=== PATIENT | male | born 1995 | race Caucasian/White ===

== ENCOUNTER 2024-08-04 11:42 | Emergency (ER) | payer BC, SELFPAY ==
[2024-08-04 11:46] VITALS: BP 109/73; PULSE 78; TEMP 36.5; O2SAT 99; BMI 26.5
--- OUTSIDE RECORDS SUMMARY | 2024-08-04 11:54 | XMS_ITS | Clinical Summary ---
Author Organization [facility] Address [address] [place] [place] [address] Phone Care Team Providers Care Line Construction Supervisor Name Role Phone Daniel Thao MD Primary Care Provider + Social History Tobacco Use Types Packs/Day Years Used Date Smoking Tobacco: Never Assessed Sex and Gender Information Value Date Recorded Sex Assigned at Not on file Legal Sex Male 3:43 AM EST Gender Identity Not on file Sexual Orientation Not on file Plan of Treatment Not on file Care Teams Line Construction Supervisor Relationship Specialty Start Date End Date Daniel Thao MD [address] [place] [id number] PCP - General 02/19/18
--- NOTE | 2024-08-04 12:04 | ED.GENADUL1 ---
HPI HPI - General Adult General Chief complaint: Wound/Laceration Stated complaint: CUT THUMB WITH RAZOR Time Seen by Provider: 08/04/24 11:46 Source: patient Mode of arrival: walk-in History of Present Illness HPI narrative: 29-year-old male presents for laceration to his left thumb. It was sustained shortly before coming into the emergency department on a razor blade as he was cutting drywall. He is right-handed and no other injury was sustained. Last tetanus shot was about 5 years ago. Related Data Home Medications ?Medication ?Instructions ?Recorded ?Confirmed No Known Home Medications 08/04/24 08/04/24 Allergies Allergy/AdvReac Type Severity Reaction Status Date / Time No Known Drug Allergies Allergy Verified 08/04/24 11:46 Opioid HPI Opioid Management Most Recent Opioid Data: Last Pain Scale 3 Today, 11:54 Review of Systems ROS Narrative A ten point review of systems is negative except as noted above. PFSH PFSH Social History Little interest or pleasure in doing things: not at all Feeling down, depressed, or hopeless: not at all Exam Narrative Exam Narrative: Nurses note and vital signs reviewed and patient is not hypoxic. General: The patient appears well and in no apparent distress. Patient is resting comfortably on cart. Skin: Warm, dry, no pallor noted. There is no rash noted. Head: Normocephalic, atraumatic Eye: Normal conjunctiva, no drainage Ears, Nose, Mouth, and Throat: oral mucosa is moist. Nares patent. Cardiovascular: Regular Rate and Rhythm Respiratory: Patient is in no distress, no accessory muscle use Back: non-tender GI: Soft and nontender Musculoskeletal: The left hand is examined. There is a laceration at his left thumb which goes across the nail and extends onto the skin of the thumb and goes across the IP joint. IP joint has full range of motion. Minimal bleeding present. No other wound is noted. Neurological: A&O, normal speech Psychiatric: Cooperative Constitutional Vital Signs, click to edit/add: Last Vital Signs Temp 97.7 F 08/04/24 11:46 Pulse 78 08/04/24 11:46 Resp 16 08/04/24 11:46 BP 109/73 08/04/24 11:46 Pulse Ox 99 08/04/24 11:46 O2 Del Method Room Air 08/04/24 11:46 Course Vital Signs Vital signs: Vital Signs Temperature 97.7 F 08/04/24 11:46 Pulse Rate 78 08/04/24 11:46 Respiratory Rate 16 08/04/24 11:46 Blood Pressure 109/73 08/04/24 11:46 Pulse Oximetry 99 08/04/24 11:46 Oxygen Delivery Method Room Air 08/04/24 11:46 Temperature 97.7 F 08/04/24 11:46 Pulse Rate 78 08/04/24 11:46 Respiratory Rate 16 08/04/24 11:46 Blood Pressure 109/73 08/04/24 11:46 Pulse Oximetry 99 08/04/24 11:46 Oxygen Delivery Method Room Air 08/04/24 11:46 Medical Decision Making MDM Narrative Medical decision making narrative: The following procedure was performed by me. Left thumb block applied using 1% lidocaine without epinephrine resulting in complete skin anesthesia. The area was prepped with Betadine x 3 and draped sterilely. The wound was explored for foreign bodies none were found and four 5-0 Ethilon sutures were placed on the skin portion of the wound. This resulted in excellent skin reapproximation and complete hemostasis. The nail has a laceration through it and there is no subungual hematoma or bleeding. It is not clear if the nailbed was violated or not but sutures are not indicated at this point. Tetanus status is already up-to-date. 2 gauze dressing applied, application checked by me and found to be appropriate, he is neurovascular intact. He will leave that on for 48 hours and apply bandage and use splint until sutures are removed in 7 to 10 days. Differential Diagnosis Differential Diagnosis: Laceration Discharge Plan Discharge Chief Complaint: Wound/Laceration Clinical Impression: Laceration Patient Disposition: Home, Self-Care Time of Disposition Decision: 12:05 Condition: Good Mode of Transportation: Private Vehicle Prescriptions / Home Meds: No Action No Known Home Medications Print Language: Lithuanian Instructions: Laceration (ED) Additional Instructions: Sutures to be removed in 7 to 10 days. Leave tube gauze dressing on for 48 hours. Remove and apply bandage and wear splint until sutures are removed. Referrals: JOSEFINA CHAPPELL [Primary Care Provider, Family Practice] - 1 week
[2024-08-04] MEDS: LIDOCAINE HCL 1% 100 MG/10 ML MDV INJ (12:42)
== END 2024-08-04 12:50 | disposition home or self-care (01) ==
PROVIDERS: Emergency Provider Emergency Medicine; PCP Family Medicine
DX: S61.012A Laceration without foreign body of left thumb without damage to nail, initial encounter (principal); W45.8XXA Other foreign body or object entering through skin, initial encounter
CPT/HCPCS: 12001; 99283